=== PATIENT | female | born 1960 | race Caucasian/White ===

== ENCOUNTER 2017-10-22 17:52 | Emergency (ER) | payer OTHER ==
[~2017-10-22] VITALS: Ht 167.6 cm; Wt 77.1 kg
[~2017-10-22 17:52] MED LIST: LEVO-T150 MCG PO; LEVOXYL150 MCG PO
[2017-10-22 17:57] VITALS: BP 155/92
[2017-10-22] MEDS ORDERED: SYNTHROID150 MCG PO (18:37)
== END 2017-10-22 18:46 | disposition home or self-care (01) ==
LOC: M.ERS 17:52
DX: Z76.0 Encounter for issue of repeat prescription (principal); E03.9 Hypothyroidism, unspecified; F10.99 Alcohol use, unspecified with unspecified alcohol-induced disorder